=== PATIENT | female | born 1990 | race Caucasian/White ===

== ENCOUNTER 2025-06-09 14:57 | Emergency (ER) | payer OTHER ==
[~2025-06-09] VITALS: Ht 170.2 cm; Wt 100.9 kg
[2025-06-09 16:09] LABS: PLATELET COUNT (AUTO) 332 K/uL (150-450); RED BLOOD CELL COUNT(AUTO) 3.97 MIL/uL (4.00-5.20); RED CELL DISTRIBUTION WIDTH 16.0 % (11.5-14.5); WHITE BLOOD COUNT (AUTO) 7.9 K/uL (4.5-11.0)
[2025-06-09 16:16] LABS: APPEARANCE,URINE HAZY (CLEAR); GLUCOSE, URINE (UA) NEGATIVE (NEGATIVE); LEUKOCYTE ESTERASE ,URINE LARGE (NEGATIVE); NITRATE,URINE NEGATIVE (NEGATIVE); OCCULT BLOOD,URINE NEGATIVE (NEGATIVE); PH,URINE DRUG SCREEN 8.0 (5.0-8.0); SPECIFIC GRAVITIY, URINE 1.023 (1.003-1.030)
[2025-06-09 16:18] LABS: CALCIUM, TOTAL 8.2 mg/dL (8.8-10.5); CREATININE 0.39 mg/dL (0.60-1.30); GLOMERULAR FILTR. RATE CALC > 60 mL/min (>60); GLUCOSE,RANDOM 91 mg/dL (70-110); SODIUM SERUM 134 mmol/L (136-145); UREA NITROGEN, BLOOD 6 mg/dL (7-18)
[2025-06-09 16:20] LABS: ALCOHOL, BLOOD (SERUM) < 3 mg/dL (0-10)
[2025-06-09 16:24] LABS: ALCOHOL, URINE DRUG SCREEN NEGATIVE (NEGATIVE); AMPHET/METH SCREEN,URINE POSITIVE (NEGATIVE); BARBITURATE SCREEN, URINE NEGATIVE (NEGATIVE); CANNABINOID SCREEN,URINE NEGATIVE (NEGATIVE); COCAINE SCREEN,URINE NEGATIVE (NEGATIVE); METHADONE SCREEN, URINE NEGATIVE (NEGATIVE)
[2025-06-09 16:32] LABS: SQUAMOUS EPITHELIAL CELL,UR Rare /LPF (None Seen)
[2025-06-09 16:44] LABS: HCG,QUANTITATIVE 14057 mIU/mL (0-6)
[2025-06-09] MEDS: CefTRIAXone 1 GM/DEXTROSE 50 ML IV ONE (17:08)
[2025-06-09 17:15] LABS: RBC MORPHOLOGY COMMENT ABNORMAL RBC MORPH
[2025-06-09 23:04] LABS: ASPARTATE AMINOTRANSFERASE 32.0 U/L (15-37); TOTAL PROTEIN, SERUM 6.6 g/dL (6.4-8.2)
[2025-06-09 23:29] VITALS: TEMP 98
[2025-06-09] MEDS: FOLIC ACID 1 MG TABLET PO ONE (23:32)
[2025-06-09] MEDS: MAGNESIUM SULFATE 2 GM, MVI, ADULT NO.1 WITH VIT K 10 ML, THIAMINE 100 MG, FOLIC ACID 1... IV ONE (23:32)
[2025-06-10 06:05] VITALS: BP 132/78; PULSE 88; RESP 16; O2SAT 100
== END 2025-06-10 07:00 | disposition short-term general hospital (02) ==
LOC: EMS 14:57
DX: O99.322 Drug use complicating pregnancy, second trimester (principal); F11.23 Opioid dependence with withdrawal; F15.10 Other stimulant abuse, uncomplicated; F17.210 Nicotine dependence, cigarettes, uncomplicated; O99.340 Other mental disorders complicating pregnancy, unspecified trimester; F41.9 Anxiety disorder, unspecified; N89.8 Other specified noninflammatory disorders of vagina; O9A.212 Injury, poisoning and certain other consequences of external causes complicating pregnancy, second trimester; O23.42 Unspecified infection of urinary tract in pregnancy, second trimester; N39.0 Urinary tract infection, site not specified; Z65.3 Problems related to other legal circumstances; Z86.19 Personal history of other infectious and parasitic diseases; Z3A.23 23 weeks gestation of pregnancy
CPT/HCPCS: 99285; 96366; 96365; 76805; 96367; 80048; 80076; 81001; 83690; 84702; 85025; 85610; 87077; 87086; 36415; 80307; G0480; J0696; J3490 ×2; J3411; J3475; J7030; 87186